=== PATIENT | male | born 1995 | race Two or more races ===

== ENCOUNTER 2024-07-05 22:42 | Emergency (ER) | payer MEDICAID, OTHER ==
[~2024-07-05] VITALS: Ht 157.5 cm; Wt 65.5 kg
[2024-07-05 23:53] LABS: Basophils # (auto) 0 10 ^3/uL (0-0.2); Basophils % (auto) 0.6 % (0.0-2.0); Eosinophils # (auto) 0 10 ^3/uL (0-0.8); Eosinophils % (auto) 0.9 % (0.0-7.0); Hematocrit 50.2 % (41.0-53.0); Hemoglobin 17.3 g/dL (13.5-17.5); Lymphocytes # (auto) 1.5 10 ^3/uL (0.4-5.4); Lymphocytes % (auto) 27.5 % (10.0-50.0); Mean Corpuscular Hemoglobin 30.8 pg (28.0-32.0); Mean Corpuscular Hgb Conc. 34.5 g/dL (32.0-36.0); Mean Corpuscular Volume 89.4 fL (80.0-100.0); Monocytes # (auto) 0.5 10 ^3/uL (0-1.3); Monocytes % (auto) 8.6 % (0.0-12.0); Neutrophils # (auto) 3.3 10 ^3/uL (1.6-8.6); Neutrophils % (auto) 62.4 % (37.0-80.0); Nucleated Red Blood Cells % 0.2 %; Red Blood Cells 5.62 10^6/uL (4.5-5.90); Red Cell Distribution Width 12.6 % (11.8-14.3); White Blood Cell 5.3 10^3/uL (4.4-10.8)
[2024-07-06 00:07] LABS: Chloride 106 mmol/L (98-107); Potassium 3.3 mmol/L (3.5-5.1); Sodium 140 mmol/L (136-145)
[2024-07-06 00:08] LABS: Anion Gap 10 (5-15); Carbon Dioxide 24 mmol/L (20-30)
[2024-07-06 00:09] LABS: Calcium 10.2 mg/dL (8.7-10.4)
[2024-07-06 00:14] LABS: BUN/Creatinine Ratio 4.7 (10.0-20.0); Blood Urea Nitrogen 6 mg/dL (9-23); Glucose 98 mg/dL (74-106)
[2024-07-06] MEDS: POTASSIUM CHL 20 Meq TABLET PO ONE (02:13)
[2024-07-06 02:15] VITALS: BP 153/88; PULSE 73; RESP 18; TEMP 99; O2SAT 100
== END 2024-07-06 04:16 | disposition home or self-care (01) ==
LOC: ER 22:42
DX: R00.2 Palpitations (principal)
CPT/HCPCS: 36415; 71045; 80048; 84484; 85025; 85379; 93005